=== PATIENT | male | born 1930 | race Caucasian/White ===

== ENCOUNTER 2017-04-23 11:56 | Inpatient (IN) | payer MEDICARE, BC ==
[2017-04-23 13:57] LABS: White Blood Count 7.7 10^3/ul (3.5-10.8)
[2017-04-23 13:59] LABS: Hematocrit 19 % (42-52); Mean Corpuscular HGB Conc 33 g/dl (31-36); Mean Corpuscular Hemoglobin 30 pg (27-31); Mean Corpuscular Volume 91 fL (80-94); Mean Platelet Volume 8 um3 (7.4-10.4); Red Cell Distribution Width 16 % (10.5-15)
[2017-04-23 14:10] LABS: Comments Flag Yes
[2017-04-23 14:11] LABS: Add Diff/Slide Review? Slide Review Added
[2017-04-23 14:15] LABS: Albumin 2.5 g/dL (3.2-5.2); BUN/Creatinine Ratio 31.4 (8-20); Calcium 8.2 mg/dL (8.6-10.3); EGFR Non-African American 33.4 (>60); Globulin 2.2 g/dL (2-4); Hemoglobin 6.3 g/dl (14.0-18.0); Potassium 4.4 mmol/L (3.5-5.0); Total Bilirubin 0.9 mg/dL (0.2-1.0); Total Protein 4.7 g/dL (6.4-8.9)
[2017-04-23 14:37] LABS: Hypochromasia 2+
[2017-04-23] MEDS ORDERED: Acetaminophen TAB* 325 MG PO PRN (17:23)
[2017-04-23] MEDS ORDERED: Magnesium Hydroxide LIQ* 30 ML UDC PO PRN (17:23)
[2017-04-23] MEDS ORDERED: oxyCODONE/Acetamin 5/325 MG* TAB PO PRN (17:23)
[2017-04-23] MEDS ORDERED: Ondansetron INJ* 2 MG/ML VIAL IV PRN (17:23)
--- NOTE | 2017-04-23 22:15 | ED ---
Jena Lo Alfonso, scribed for Lion Newton MD on 04/23/17 at 1248 . Complex/Multi-Sys Presentation - HPI Summary HPI Summary: LEVEL 5 CAVAET DUE TO ALZHEMIERS. This patient is an 87 year old M presenting to [facility] accompanied by family with a chief complaint of low platelets noted a few days ago. He does receive blood transfusions. Symptoms alleviated by nothing. reports bed sores, and generalized weakness. - History Of Current Complaint Chief Complaint: EDGeneral Time Seen by Provider: 04/23/17 12:41 Hx Obtained From: Family/[employer] Maker Onset/Duration: Gradual Onset, Lasting Days, Still Present Timing: Constant Alleviating Factor(s): nothing Associated Signs And Symptoms: Positive: Other - bed sores, and generalized weakness. - Allergies/Home Medications Allergies/Adverse Reactions: Allergies Allergy/AdvReac Type Severity Reaction Status Date / Time Ceftriaxone [From Rocephin] Allergy Intermediate syncope Verified 04/23/17 12:05 Cephalexin [From Keflex] Allergy Unknown Verified 04/23/17 12:05 Reaction Details Tramadol Allergy Unknown Verified 04/23/17 12:05 Reaction Details Home Medications: Home Medications Acetaminophen TAB* [Tylenol TAB*] 650 mg PO Q4H PRN 04/23/17 [History Confirmed 04/23/17] Acetaminophen [Acetaminophen Extra Stren] 1,000 mg PO BID 04/23/17 [History Confirmed 04/23/17] Albuterol/Ipratropium NEB.DARIUSZ* [Duoneb (Albuterol 2.5 MG/Ipratropium 0.5 MG)] 1 neb INH Q4H PRN 04/23/17 [History Confirmed 04/23/17] Allopurinol TAB* [Zyloprim 100 MG TAB*] 200 mg PO DAILY 04/23/17 [History Confirmed 04/23/17] Bisacodyl SUPP* [Dulcolax Supp*] 10 mg SC DAILY PRN 04/23/17 [History Confirmed 04/23/17] Cholecalciferol [Vitamin D] 2,000 unit PO DAILY 04/23/17 [History Confirmed ] EPINEPHrine AMP 1 MG/ML* 1 mg IM ONCE PRN 04/23/17 [History Confirmed 04/23/17] Furosemide IV* [Lasix IV*] 40 mg IV DAILY PRN 04/23/17 [History Confirmed ] Heparin (Porcine) in Sodium Ch [Heparin Sodium/Sodium Ch 500-0.45 Ut/250Ml-%] 1 inj IV DAILY 04/23/17 [History Confirmed 04/23/17] Levofloxacin TAB* [Levaquin TAB*] 250 mg PO DAILY 04/23/17 [History Confirmed ] Magnesium Hydroxide LIQ* [Milk of Magnesia LIQ*] 30 ml PO DAILY PRN 04/23/17 [ History Confirmed 04/23/17] Metoprolol Tartrate TAB* [Lopressor TAB*] 25 mg PO BID 04/23/17 [History Confirmed 04/23/17] Omeprazole CAP* [Prilosec CAP* 20 MG] 20 mg PO DAILY 04/23/17 [History Confirmed 04/23/17] Risperidone 0.25 mg PO BEDTIME 04/23/17 [History Confirmed 04/23/17] Sodium Chloride Flush* [Saline Flush*] 10 ml IV BID 04/23/17 [History Confirmed 04/23/17] Sodium Phosphate ADULT ENEMA* [Fleet Enema*] 1 enema SC DAILY PRN 04/23/17 [ History Confirmed 04/23/17] Tuberculin Ppd [Tubersol] 5 unit INJ DAILY 04/23/17 [History Confirmed 04/23/17] diPHENhydraMINE MDV* [Diphenhydramine MDV*] 500 mg IM ONCE PRN 04/23/17 [ History Confirmed 04/23/17] PMH/Surg Hx/FS Hx/Imm Hx Endocrine/Hematology History: Denies: Hx Diabetes, Hx Thyroid Disease Cardiovascular History: Reports: Hx Coronary Artery Disease, 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, Other Cardiovascular Problems/ Disorders - CHOLESTEROL CONTROL WITH MED Denies: Hx Hypertension, Hx Pacemaker/ICD Respiratory History: Denies: Hx Asthma, Hx Chronic Obstructive Pulmonary Disease (COPD) GI History: Denies: Hx Ulcer History: Reports: Other Problems/Disorders - CHRONIC RENAL INSUFFICENCY Denies: Hx Renal Disease Musculoskeletal History: Reports: Hx Arthritis - SHOULDERS Denies: Hx Osteoporosis, Other Musculoskeletal History Sensory History: Reports: Hx Contacts or Glasses - GLASSES Denies: Hx Hearing Aid Opthamlomology History: Reports: Hx Contacts or Glasses - GLASSES Neurological History: Reports: Other Neuro Impairments/Disorders - ALZHEMIERS Denies: Hx Peripheral Neuropathy Psychiatric History: Denies: Hx Anxiety, Hx Panic Disorder - Cancer History Cancer Type, 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 APPENDECTOMY A CHILD-[facility]. SURGERY FOR PANCREATITIS,SHUNT OK PER DR ARANA - - [place]. RIGHT INGUINAL HERNIA [id number]. CATARACT BILATERAL, [facility]. 03/2014 CYSTOSCOPY, TRANSURETHERAL RESECTION BLADDER TUMOR, [facility] Hx Anesthesia Reactions: No Infectious Disease History: No Infectious Disease History: Reports: Hx Hepatitis - AND PANCREATITIS Denies: Hx Human Immunodeficiency Virus (HIV), Traveled Outside the [place] in Last 30 Days - Family History Known Family History: Positive: Unknown - ALZHEMIERS - Social History Alcohol Use: None Substance Use Type: Reports: None Smoking Status (MU): Former Smoker Type: Cigarettes Amount Used/How Often: 1 PPD X 45 YEARS Have You Smoked in the Last Year: No Review of Systems Negative: Fever Positive: Other - low platelets Positive: Other - bed sores Positive: Weakness All Other Systems Reviewed And Are Negative: No Physical Exam Triage Information Reviewed: Yes Vital Signs On Initial Exam: Initial Vitals Temp Pulse Resp BP Pulse Ox 98.7 F 107 20 110/46 94 04/23/17 12:02 04/23/17 12:02 04/23/17 12:02 04/23/17 12:02 04/23/17 12:02 Vital Signs Reviewed: Yes Completion Of Physical Exam Limited Due To: Level 5 - ALZHEMIERS Appearance: Positive: No Pain Distress, Ill-Appearing Skin: Positive: Warm, Skin Color Reflects Adequate Perfusion, Dry, Other - Erythematous nodule on right side of chest Head/Face: Positive: Normal Head/Face Inspection Eyes: Positive: Normal ENT: Positive: Other - Mucous membranes dry Neck: Positive: Supple, Nontender Respiratory/Lung Sounds: Positive: Clear to Auscultation, Breath Sounds Present Cardiovascular: Positive: RRR Abdomen Description: Positive: Nontender, Soft Bowel Sounds: Positive: Present Musculoskeletal: Positive: Other - Significant pitting edema bilaterally Neurological: Positive: CN Intact II-III, Other - Poorly responsive Psychiatric: Positive: Normal, Affect/Mood Appropriate Diagnostics - Vital Signs Vital Signs Temp Pulse Resp BP Pulse Ox 04/23/17 12:02 98.7 F 107 20 110/46 94 - Laboratory Lab Results: Lab Results 04/23/17 04/23/17 04/23/17 Range/Units 13:48 13:48 13:48 WBC 7.7 (3.5-10.8) 10^3/ul RBC 2.10 L (4.0-5.4) 10^6/ul Hgb 6.3 L* (14.0-18.0) g/dl Hct 19 L (42-52) % MCV 91 (80-94) fL MCH 30 (27-31) pg MCHC 33 (31-36) g/dl RDW 16 H (10.5-15) % Plt Count 6 L* (150-450) 10^3/ul MPV 8 (7.4-10.4) um3 Neut % (Auto) 96.6 H (38-83) % Lymph % (Auto) 2.4 L (25-47) % Zapata % (Auto) 1.0 (1-9) % Eos % (Auto) 0 (0-6) % Baso % (Auto) 0 (0-2) % Absolute Neuts (auto) 7.4 (1.5-7.7) 10^3/ul Absolute Lymphs (auto) 0.2 L (1.0-4.8) 10^3/ul Absolute Monos (auto) 0.1 (0-0.8) 10^3/ul Absolute Eos (auto) 0 (0-0.6) 10^3/ul Absolute Basos (auto) 0 (0-0.2) 10^3/ul Absolute Nucleated RBC 0 10^3/ul Nucleated RBC % 0 Normal RBC Morphology Not Reportable Hypochromasia 2+ INR (Anticoag Therapy) 1.19 H (0.89-1.11) Sodium 141 (133-145) mmol/L Potassium 4.4 (3.5-5.0) mmol/L Chloride 107 (101-111) mmol/L Carbon Dioxide 30 (22-32) mmol/L Anion Gap 4 (2-11) mmol/L BUN 60 H (6-24) mg/dL Creatinine 1.91 H (0.67-1.17) mg/dL Est GFR ( Amer) 43.0 (>60) Est GFR (Non-Af Amer) 33.4 (>60) BUN/Creatinine Ratio 31.4 H (8-20) Glucose 191 H (70-100) mg/dL Calcium 8.2 L (8.6-10.3) mg/dL Total Bilirubin 0.90 (0.2-1.0) mg/dL AST 20 (13-39) U/L ALT 18 (7-52) U/L Alkaline Phosphatase 95 (34-104) U/L Total Protein 4.7 L (6.4-8.9) g/dL Albumin 2.5 L (3.2-5.2) g/dL Globulin 2.2 (2-4) g/dL Albumin/Globulin Ratio 1.1 (1-3) Blood Type Antibody Screen Crossmatch 04/23/17 Range/Units 13:48 WBC (3.5-10.8) 10^3/ul RBC (4.0-5.4) 10^6/ul Hgb (14.0-18.0) g/dl Hct (42-52) % MCV (80-94) fL MCH (27-31) pg MCHC (31-36) g/dl RDW (10.5-15) % Plt Count (150-450) 10^3/ul MPV (7.4-10.4) um3 Neut % (Auto) (38-83) % Lymph % (Auto) (25-47) % Zapata % (Auto) (1-9) % Eos % (Auto) (0-6) % Baso % (Auto) (0-2) % Absolute Neuts (auto) (1.5-7.7) 10^3/ul Absolute Lymphs (auto) (1.0-4.8) 10^3/ul Absolute Monos (auto) (0-0.8) 10^3/ul Absolute Eos (auto) (0-0.6) 10^3/ul Absolute Basos (auto) (0-0.2) 10^3/ul Absolute Nucleated RBC 10^3/ul Nucleated RBC % Normal RBC Morphology Hypochromasia INR (Anticoag Therapy) (0.89-1.11) Sodium (133-145) mmol/L Potassium (3.5-5.0) mmol/L Chloride (101-111) mmol/L Carbon Dioxide (22-32) mmol/L Anion Gap (2-11) mmol/L BUN (6-24) mg/dL Creatinine (0.67-1.17) mg/dL Est GFR ( Amer) (>60) Est GFR (Non-Af Amer) (>60) BUN/Creatinine Ratio (8-20) Glucose (70-100) mg/dL Calcium (8.6-10.3) mg/dL Total Bilirubin (0.2-1.0) mg/dL AST (13-39) U/L ALT (7-52) U/L Alkaline Phosphatase (34-104) U/L Total Protein (6.4-8.9) g/dL Albumin (3.2-5.2) g/dL Globulin (2-4) g/dL Albumin/Globulin Ratio (1-3) Blood Type A Positive Antibody Screen Negative Crossmatch See Detail Result Diagrams: 04/23/17 13:48 04/23/17 13:48 Lab Statement: Any lab studies that have been ordered have been reviewed, and results considered in the medical decision making process. Complex Multi-Symp Course/Dx Course Of Treatment: Mr. Berger was found to be pancytopenic and is being admitted by Dr Butler. - Diagnoses Provider Diagnoses: Anemia, Thrombocytopenia - Physician Notifications Discussed Care Of Patient With: Teo Hemphill Time Discussed With Above Provider: 15:33 Instructed by Provider To: Other - Consulted Dr. Riley (oncologist) who will see the patient in the ED. Discharge - Discharge Plan Condition: Stable Disposition: ADMITTED TO [facility] documentation as recorded by the Jena padgett Alfonso accurately reflects the service I personally performed and the decisions made by , Lion Newton MD.
--- NOTE | 2017-04-23 22:46 | HP ---
HISTORY AND PHYSICAL: DATE OF ADMISSION: 04/23/17 REASON FOR ADMISSION: Severe anemia and failure to thrive. 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 HISTORY OF PRESENT ILLNESS: Mr. 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 He developed acute rise in his white count approximately 6 weeks ago. Bone marrow biopsy consistent with myeloid shift, no immature cells. Presumptive diagnosis of CMML. Dr. Riddle recommended hospice. They went for a second opinion at [facility] where he was treated with a high-dose Hydrea. His white count went down from 330,000 to 7.7. Unfortunately, there were multiple treatment complications. He developed severe lower extremity edema, diffuse rash and bed sores, aspiration pneumonia, and renal failure. He was transferred to [facility] after a 3- week hospitalization with recommendation for hospice. The apparently had talked to Hospice, but he is not enrolled. When he first went to [facility] on Sunday, he was able to do a little bit of physical therapy and walk around. He became increasingly weak throughout the weekend and then this morning was unable to get up out of bed. He was brought to the emergency room at [facility]. In the emergency room, he had a hemoglobin of 6.3, white count 7.7, 96% neutrophils, and platelet count of 6. His baseline hemoglobin is 10+ prior to recent illness. He has an INR of 1.19. He has a creatinine of 1.91, slightly elevated from baseline. Albumin of 2.5. Normal LFTs. On conversations, the patient recognized that he is dying of leukemia and indicates that he is ready for that. He denies being in pain at this time. PAST MEDICAL HISTORY: 1. Low-grade lymphoma. 2. CMML. 3. Osteoporosis. 4. High cholesterol. 5. Iron deficiency. PAST SURGICAL HISTORY: No relevant surgeries. ALLERGIES: CEFTRIAXONE, CEPHALEXIN, and TRAMADOL. FAMILY HISTORY: Children are healthy. SOCIAL HISTORY: is his primary support. He has 3 children from a prior marriage and she has 2 children and he considers all of them as grandchildren. The family lives in [place] and has been in touch with hospice in [facility]. REVIEW OF SYSTEMS: Difficult to obtain, but denies pain. He is not short of breath. Otherwise, deferred. PHYSICAL EXAMINATION GENERAL: Elderly male, cachectic, and in no acute distress. VITAL SIGNS: Temperature 98.7, BP 90/46, pulse 86, respirations 18. HEENT: Mucosa dry, then missing his teeth. LUNGS: Decreased breath sounds. HEART: Regular rate and rhythm. S1, S2. Systolic murmur. ABDOMEN: Edematous. No hepatosplenomegaly. EXTREMITIES: +3 edema, thighs down. MUSCULOSKELETAL: Bedbound. Too weak to lift his hands or his feet. NEUROLOGIC: He is oriented to answering questions, but minimal information. SKIN: Diffuse rash and petechiae. Would not able to turn him for ulcers. LABORATORY DATA: As above. 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 He is not a candidate for additional therapy. He has severely compromised performance status. At this time, hospice is most appropriate and both the patient and family agree. They would like him to have a transfusion to see if it helps with his energy and we will plan on giving him 1 unit of pack cells overnight. He would be a candidate for either hospice residence or senior living placement with hospice in [place] near his family. We will have a hospice consultation. We will also have wound care see him for the decubitus ulcers to see if we could help alleviate discomfort from that. He will be DNR/DNI. We will check a CBC tomorrow, but otherwise no other blood work intended. I did discuss platelet transfusion with the family. Because of duration of effectiveness of platelet transfusion is so short, he is not actively bleeding, I did not recommend he get platelets tonight. We will continue his regular diet with Thick- It for his aspiration risk. No DVT prophylaxis given thrombocytopenia. He will have vital signs overnight but may transition to comfort care only in the morning. [id number]/[facility] #: [id number] [facility]ENTERSen[facility]
[2017-04-24 05:34] LABS: Hemoglobin 7.2 g/dl (14.0-18.0); Mean Corpuscular Volume 89 fL (80-94)
[2017-04-24 05:36] LABS: Hematocrit 22 % (42-52); Mean Corpuscular HGB Conc 34 g/dl (31-36); Mean Corpuscular Hemoglobin 30 pg (27-31); Mean Platelet Volume 8 um3 (7.4-10.4); Red Blood Count 2.43 10^6/ul (4.0-5.4); Red Cell Distribution Width 15 % (10.5-15); White Blood Count 16.2 10^3/ul (3.5-10.8)
[2017-04-24 05:41] LABS: Comments Flag Yes
[2017-04-24 05:43] LABS: Add Diff/Slide Review? Slide Review Added
[2017-04-24] MEDS ORDERED: Influenza VAC *QUAD* 2017-18* 0.5 ML SYRINGE IM ONE (09:00)
[2017-04-24] MEDS ORDERED: oxyCODONE ORAL.SOLN* 5 MG/5 ML UDC PO PRN (21:20)
[2017-04-25 04:06] VITALS: BP 110/46
[2017-04-25] MEDS ORDERED: Acetaminophen ADULT LIQ* 650 MG/20.3 ML UDC PO PRN (04:44)
[2017-04-25] MEDS ORDERED: Morphine ORAL CONCENTRATE* 5 MG/0.25 ML ORAL.SYRIN PO PRN (10:00)
[2017-04-25] MEDS ORDERED: LORazepam TAB(*) 0.5 MG PO PRN ×2 (10:10→14:46)
--- NOTE | 2017-04-25 10:13 | PN ---
Progress Note - Progress Note Date of Service: 04/25/17 SOAP: Subjective: minimally verbal but able to state that he is in no pain and not having trouble breathing. daughter reports that he is very restless if not routinely getting pain meds Objective: Vital Signs Temp Pulse Resp BP Pulse Ox 100.7 F 67 22 110/46 85 04/25/17 04:18 04/25/17 03:53 04/25/17 05:37 04/25/17 03:53 04/25/17 03:53 lying flat mumbling mostly incoherently anasarcic Acetaminophen (Tylenol Adult Liq*) 650 mg PO Q4H PRN PRN Reason: FEVER/PAIN Last Admin: 04/25/17 05:05 Dose: 650 mg Lorazepam (Ativan Tab(*)) 0.5 mg PO Q4H PRN PRN Reason: ANXIETY Morphine Sulfate (Morphine Oral Concentrate*) 10 mg PO Q2H PRN PRN Reason: PAIN Assessment: 87 yo M w likely CMML initially recommended to have hospice by myself but treated with induction hydrea at [place] complicated by multiple infections and a prolonged hospital stay with ultimate decline in functional status, with the family now agreeing to hospice. Plan: -likely transfer to hospice residence tomorrow IF he does not prior -comfort measures -stop vitals -change to morphine concentrate and ativan
--- NOTE | 2017-04-25 18:59 | CONS ---
CC: Jennifer Odom MD; Oleg Butler MD* PALLIATIVE CARE CONSULTATION: DATE OF CONSULT: 04/25/17 PRIMARY CARE PHYSICIAN: Jennifer Odom MD REFERRING PHYSICIAN: Oleg Butler MD HOSPITAL COURSE: This is an 87-year-old male with a past medical history of low - grade lymphoma, CMML, who presented to the emergency room on 04/23/17 for severe anemia and failure to thrive. The patient was seen in consultation by Dr. Riddle about 6 weeks ago that showed presumptive diagnosis of CMML. Dr. Riddle at that time recommended hospice, the daughter and wanted to get a second opinion and went to [place] and he was treated with high-dose Hydrea. His CMML improved; however, he continued to have multiple complications including pressure ulcer, aspiration pneumonia, renal failure. He was transferred to a longterm at [facility] and then was recommended for hospice. The family states that he has had a significant decline. The and daughter are at the bedside. He has had minimal p.o. and more somnolence and confusion. The family has agreed for the patient to go to the hospice residence tomorrow on 04/26/17. The patient is sleeping, minimally arousable, unable to obtain review of systems. PAST MEDICAL HISTORY: 1. Low-grade lymphoma. 2. CMML. 3. Osteoporosis. 4. Hyperlipidemia. 5. Iron deficiency anemia. INPATIENT MEDICATIONS: 1. Tylenol 650 mg q.4 hours as needed. 2. Lorazepam 0.5 mg q.4 hours as needed. 3. Morphine 10 mg q.2 hours as needed. ALLERGIES: CEFTRIAXONE, CEPHALEXIN, and TRAMADOL. FAMILY HISTORY: Reviewed and noncontributory. SOCIAL HISTORY: The patient was living at home with his up until 6 weeks ago, when he started treatment at [facility] and then was in the longterm for the past 3 weeks. His healthcare proxy is his daughter. No history of alcohol , tobacco, or illicit drug use. REVIEW OF SYSTEMS: Unable to obtain. PHYSICAL EXAM: Vitals: Temp 100.7, pulse rate 94, respiratory rate 10, oxygen saturation 97% on 3 L, blood pressure 110/46. General: Malnourished, frail, elderly man, in no acute distress, does not awake to verbal or gentle tactile stimulation. HEENT: Pupils are sluggish, anicteric. Head: Normocephalic. Oropharynx: Mucous membranes dry. Cardiac: Irregularly irregular rate and rhythm. Soft systolic murmur heard throughout. Respiratory: Diminished breath sounds. Bilateral rhonchi. No increased work of breathing. Abdomen: Soft, nontender, and nondistended. Extremities: No clubbing, cyanosis, or edema. +1 DPs. Neurologic: Unable to follow commands or verbally interact. LABORATORY DATA: White count 16.2, hemoglobin 7.2, hematocrit 22, platelets of 3. INR was 1.19. Sodium 141, potassium 4.4, chloride 107, bicarb 30, BUN 16, creatinine 1.91, albumin is 2.5. ASSESSMENT AND PLAN: This is an 87-year-old male with a past medical history of chronic myelomonocytic leukemia, who presented to the emergency room with failure to thrive after prolonged complications after getting treatment for his chronic myelomonocytic leukemia at [place]. The patient is now hospice eligible with the principal diagnosis of chronic myelomonocytic leukemia, secondary diagnoses of malnutrition and poor performance status. The patient is comfortable; however, his respiratory rate has dipped down to as low as 8. I would anticipate transfer to the hospice residence, but it is possible he may prior to that. I will add an atropine as needed, increase his Ativan to q.2 hours as needed. Thank you for this consultation. I will follow along with you. PATIENT TIME: Greater than 60 minutes was spent doing this consultation, more than half the time was spent in direct patient contact. [id number]/[facility] #: [id number] MTDD
[2017-04-25] MEDS: Atropine 1% (ORAL/SL)* 15 ML BTL SL PRN (22:16)
--- NOTE | 2017-04-26 09:23 | DS ---
- Discharge Summary Admission Date: 04/23/17 Discharge Date: 04/26/17 Discharge Diagnosis: 1. Leukemia: transition to end of life Discharge Medications: 1. Acetaminophen liquid 650 mg PO q4hrs PRN pain/fever 2. Atropine 1% 2 gtts SL q2hrs PRN discomfort 3. Lorazepam 0.5 mg PO q2hrs PRN agitation 4. Morphine concentrate 10 mg PO q2hrs PRN pain Hospital Course: Please see admission note for full H&P, however briefly, Mr. Berger was diagnosed with CMML in the spring. In March of this year he transitioned to acute leukemia, however d/t his advanced age and co-morbidities treatment was not felt to be an option and hospice was recommended. Ultimately the pt. and family decided to pursue a second opinion and they were seen in [place] at [facility] where he was offered treatment with Hydrea. Treatment unfortunately was not tolerated well and he suffered significant S/Es requiring hospitalization. He was d/c'd on 04/20/17 from [facility]. Mr. Berger then presented to the ER on 04/23 with severe anemia and progressive decline. He was diagnosed with failure to thrive and admitted for 1 unit of blood with the goal of improving his strength enough to transition to hospice at home, the patient was very much in ageement with this. The following day he received 1 unit of platelets as well, however unfortunately cont.'d to decline rapidly. Yesterday the patient was essentially non-verbal and the family agreed to transfer him to the hospice residence today. He currently is comfortable with use of atropine and morphine liquid concentrate.
[2017-04-26] MEDS: Atropine 1% (ORAL/SL)* 15 ML BTL SL PRN (10:26)
== END 2017-04-26 11:15 | disposition hospice, inpatient (51) | DRG 841 ==
LOC: ED 11:56 → MED 17:23
PROVIDERS: ADMIT Internal Medicine Hematology & Oncology; ATTEND Internal Medicine Hematology & Oncology
PROC: 30233N1 Transfusion of Nonautologous Red Blood Cells into Peripheral Vein, Percutaneous Approach (ICD-10-PCS; principal; 2017-04-24)
DX: C93.10 Chronic myelomonocytic leukemia not having achieved remission (principal); E46 Unspecified protein-calorie malnutrition; N19 Unspecified kidney failure; D64.9 Anemia, unspecified; C92.50 Acute myelomonocytic leukemia, not having achieved remission; R62.7 Adult failure to thrive; M81.0 Age-related osteoporosis without current pathological fracture; E78.5 Hyperlipidemia, unspecified; Z88.8 Allergy status to other drugs, medicaments and biological substances; Z66 Do not resuscitate; Z51.5 Encounter for palliative care; I25.10 Atherosclerotic heart disease of native coronary artery without angina pectoris; M19.012 Primary osteoarthritis, left shoulder; M19.011 Primary osteoarthritis, right shoulder; Z98.42 Cataract extraction status, left eye; Z98.41 Cataract extraction status, right eye; Z81.8 Family history of other mental and behavioral disorders; Z87.891 Personal history of nicotine dependence
CPT/HCPCS: 36415; 80053; 85025; 85610; 86850; 86900; 86901; 86922; 87040; 87641; 99220; 99232; 99238; A9270-GY; P9035; P9040